=== PATIENT | male | born 1960 | race Caucasian/White ===

== ENCOUNTER 2016-06-17 04:28 | Emergency (ER) | payer OTHER ==
[2016-06-17 04:36] LABS: INFLUENZA A SCREEN POSITIVE (NEGATIVE)
[2016-06-17 04:37] LABS: INFLUENZA B SCREEN NEGATIVE (NEGATIVE)
== END 2016-06-17 04:57 | disposition home or self-care (01) ==
LOC: ER 04:28
PROVIDERS: Nurse Practitioner Acute Care
DX: J10.1 Influenza due to other identified influenza virus with other respiratory manifestations (principal)
CPT/HCPCS: 87804; 94640; 99283; A9270-GY